=== PATIENT | female | born 1965 | race Caucasian/White ===

== ENCOUNTER 2017-02-23 11:14 | Emergency (ER) | payer OTHER ==
[~2017-02-23] VITALS: Ht 170.2 cm; Wt 72.6 kg
[~2017-02-23 11:14] MED LIST: ESOM40CA PO; LEVO125T8 PO
--- NOTE | 2017-02-23 11:38 | NUR ---
PT AMBULATORY TO ER BED 10. R FOOT PAIN/BRUISING POST SLIP AND FALL YESTERDAY. DENIES HEAD TRAUMA. NO OTHER COMPLAINTS. AWAITIG MD AGUIRRE.
[2017-02-23] MEDS ORDERED: IBUPROFEN 400 MG TABLET ONE (12:18)
--- NOTE | 2017-02-23 12:20 | NUR ---
RADIOLOGY AT BEDSIDE FOR R FOOT/ANKLE XRAY.
[2017-02-23] MEDS: IBUPROFEN 400 MG TABLET PO ONE (12:25)
--- NOTE | 2017-02-23 13:16 | NUR ---
TECH AT BEDSIDE FOR SPLINT PLACEMENT.
--- NOTE | 2017-02-23 13:25 | NUR ---
Patient discharged to home in stable condition. Written and verbal after care instructions given. Patient verbalizes understanding of instruction.
[2017-02-23 13:27] VITALS: BP 115/65
== END 2017-02-23 13:28 | disposition home or self-care (01) ==
LOC: ER 11:15
DX: S92.354A Nondisplaced fracture of fifth metatarsal bone, right foot, initial encounter for closed fracture (principal); J45.909 Unspecified asthma, uncomplicated; K21.9 Gastro-esophageal reflux disease without esophagitis; W01.0XXA Fall on same level from slipping, tripping and stumbling without subsequent striking against object, initial encounter; Y93.01 Activity, walking, marching and hiking; Y92.89 Other specified places as the place of occurrence of the external cause; Y99.8 Other external cause status
CPT/HCPCS: 29515; 73610; 73630; 99284; A4606; Z7610